=== PATIENT | female | born 1945 | race Caucasian/White ===

== ENCOUNTER 2018-11-08 13:08 | Inpatient (IN) | payer OTHER, MEDICARE, BC ==
[2018-11-08] MEDS ORDERED: Acetaminophen/HYDROcodone 325-10 MG Tab PO ONE (13:51)
[2018-11-08] MEDS ORDERED: [UNRECOGNIZED DRUG - REMARK] INH PRN (15:14)
[2018-11-08] MEDS: diphenhydrAMINE 25 MG Cap **OWN MED PO SCH (19:53)
[2018-11-08] MEDS: GLUCOSAMINE MSM PO SCH (19:53)
[2018-11-08] MEDS: CALCIUM CITRATE 1000 MG PO SCH (19:54)
[2018-11-08] MEDS: VITAMIN CODE PO SCH (19:54)
[2018-11-08] MEDS: ASCORBIC ACID 1000 MG PO SCH (19:54)
[2018-11-08] MEDS: Acetaminophen/HYDROcodone 325-10 MG Tab PO PRN (19:55)
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
[2018-11-09] MEDS: TIROSINT 75 MCG PO SCH (06:14)
[2018-11-09] MEDS: CRANBERRY 500 MG PO SCH (07:58)
[2018-11-09] MEDS: GLUCOSAMINE MSM PO SCH ×2 (07:58→19:59)
[2018-11-09] MEDS: OMEGA PO SCH (07:58)
[2018-11-09] MEDS: FATTY ACIDS PO SCH (07:58)
[2018-11-09] MEDS: FISH OIL PO SCH (07:58)
[2018-11-09] MEDS: MAGNESIUM OXIDE 200 MG PO SCH (07:59)
[2018-11-09] MEDS ORDERED: Lactobacillus Rhamnosus GG (Probiotic) Cap PO SCH (08:00)
[2018-11-09] MEDS: [UNRECOGNIZED DRUG - OTHER] PO SCH (08:00)
[2018-11-09] MEDS ORDERED: BIOFLAVONOID PO SCH (08:00)
[2018-11-09] MEDS: ASCORBIC ACID 1000 MG PO SCH ×4 (08:00→19:59)
[2018-11-09] MEDS ORDERED: CHOLECALCIFEROL PO SCH (08:00)
[2018-11-09] MEDS ORDERED: ASCORBATE CALCIUM PO SCH (08:00)
[2018-11-09] MEDS: CALCIUM CITRATE 1000 MG PO SCH ×2 (08:01→20:00)
[2018-11-09] MEDS: VITAMIN CODE PO SCH ×2 (08:02→20:01)
[2018-11-09] MEDS: Acetaminophen/HYDROcodone 325-10 MG Tab PO PRN ×4 (08:03→19:58)
[2018-11-09] MEDS: ZINC 50 MG PO SCH (08:03)
[2018-11-09] MEDS: [UNRECOGNIZED DRUG - OTHER] TOP SCH (08:05)
[2018-11-09] MEDS: DIFFERIN 0.1% TOP SCH (08:05)
[2018-11-09] MEDS: diphenhydrAMINE 25 MG Cap **OWN MED PO SCH (19:57)
[2018-11-10] MEDS: Acetaminophen/HYDROcodone 325-10 MG Tab PO PRN ×5 (03:23→23:20)
[2018-11-10] MEDS: TIROSINT 75 MCG PO SCH (06:10)
[2018-11-10] MEDS: [UNRECOGNIZED DRUG - OTHER] TOP SCH (08:38)
[2018-11-10] MEDS: DIFFERIN 0.1% TOP SCH (08:38)
[2018-11-10] MEDS: VITAMIN CODE PO SCH ×2 (08:39→19:33)
[2018-11-10] MEDS: MAGNESIUM OXIDE 200 MG PO SCH (08:40)
[2018-11-10] MEDS: ASCORBIC ACID 1000 MG PO SCH ×4 (08:44→19:32)
[2018-11-10] MEDS: CALCIUM CITRATE 1000 MG PO SCH ×2 (08:45→19:33)
[2018-11-10] MEDS: OMEGA PO SCH (08:46)
[2018-11-10] MEDS: FISH OIL PO SCH (08:46)
[2018-11-10] MEDS: FATTY ACIDS PO SCH (08:46)
[2018-11-10] MEDS: CRANBERRY 500 MG PO SCH (08:46)
[2018-11-10] MEDS: [UNRECOGNIZED DRUG - OTHER] PO SCH (08:48)
[2018-11-10] MEDS: GLUCOSAMINE MSM PO SCH ×2 (08:48→19:32)
[2018-11-10] MEDS: ZINC 50 MG PO SCH (08:49)
[2018-11-10] MEDS: diphenhydrAMINE 25 MG Cap **OWN MED PO SCH (19:31)
[2018-11-11] MEDS: TIROSINT 75 MCG PO SCH (06:15)
[2018-11-11 06:56] LABS: ANION GAP 8.8 mmol/L (10-20); CHLORIDE,CL 103 mmol/L (98-107); SODIUM,NA 141 mmol/L (136-145)
[2018-11-11] MEDS: CRANBERRY 500 MG PO SCH (08:25)
[2018-11-11] MEDS: Acetaminophen/HYDROcodone 325-10 MG Tab PO PRN ×4 (08:26→23:27)
[2018-11-11] MEDS: ASCORBIC ACID 1000 MG PO SCH ×4 (08:31→19:30)
[2018-11-11] MEDS: ZINC 50 MG PO SCH (08:32)
[2018-11-11] MEDS: [UNRECOGNIZED DRUG - OTHER] PO SCH (08:32)
[2018-11-11] MEDS: VITAMIN CODE PO SCH ×2 (08:33→19:31)
[2018-11-11] MEDS: CALCIUM CITRATE 1000 MG PO SCH ×2 (08:33→19:31)
[2018-11-11] MEDS: OMEGA PO SCH (08:35)
[2018-11-11] MEDS: MAGNESIUM OXIDE 200 MG PO SCH (08:35)
[2018-11-11] MEDS: FISH OIL PO SCH (08:35)
[2018-11-11] MEDS: GLUCOSAMINE MSM PO SCH ×2 (08:35→19:30)
[2018-11-11] MEDS: FATTY ACIDS PO SCH (08:35)
[2018-11-11] MEDS: [UNRECOGNIZED DRUG - OTHER] TOP SCH (08:38)
[2018-11-11] MEDS: DIFFERIN 0.1% TOP SCH (08:38)
[2018-11-11] MEDS: Dextran 70/Hypromellose/PF Ophth Soln 0.9 ML UD EYEBOTH SCH ×2 (11:21→19:32)
[2018-11-11] MEDS: diphenhydrAMINE 25 MG Cap **OWN MED PO SCH (19:29)
[2018-11-12] MEDS: Acetaminophen/HYDROcodone 325-10 MG Tab PO PRN ×3 (04:37→16:25)
[2018-11-12] MEDS: TIROSINT 75 MCG PO SCH (06:12)
[2018-11-12] MEDS: ASCORBIC ACID 1000 MG PO SCH ×4 (09:01→20:05)
[2018-11-12] MEDS: MAGNESIUM OXIDE 200 MG PO SCH (09:05)
[2018-11-12] MEDS: CALCIUM CITRATE 1000 MG PO SCH ×2 (09:08→20:07)
[2018-11-12] MEDS: CRANBERRY 500 MG PO SCH (09:08)
[2018-11-12] MEDS: GLUCOSAMINE MSM PO SCH ×2 (09:08→20:05)
[2018-11-12] MEDS: OMEGA PO SCH (09:09)
[2018-11-12] MEDS: ZINC 50 MG PO SCH (09:09)
[2018-11-12] MEDS: FISH OIL PO SCH (09:09)
[2018-11-12] MEDS: FATTY ACIDS PO SCH (09:09)
[2018-11-12] MEDS: VITAMIN CODE PO SCH ×2 (09:09→20:08)
[2018-11-12] MEDS: [UNRECOGNIZED DRUG - OTHER] PO SCH (09:09)
[2018-11-12] MEDS: Dextran 70/Hypromellose/PF Ophth Soln 0.9 ML UD EYEBOTH SCH ×2 (09:11→20:02)
[2018-11-12] MEDS: [UNRECOGNIZED DRUG - OTHER] TOP SCH (10:55)
[2018-11-12] MEDS: DIFFERIN 0.1% TOP SCH (10:56)
[2018-11-12] MEDS: diphenhydrAMINE 25 MG Cap **OWN MED PO SCH (20:06)
[2018-11-13] MEDS: Acetaminophen/HYDROcodone 325-10 MG Tab PO PRN ×5 (01:44→22:49)
[2018-11-13] MEDS: TIROSINT 75 MCG PO SCH (06:19)
[2018-11-13] MEDS: FISH OIL PO SCH (07:35)
[2018-11-13] MEDS: GLUCOSAMINE MSM PO SCH ×2 (07:35→19:53)
[2018-11-13] MEDS: FATTY ACIDS PO SCH (07:35)
[2018-11-13] MEDS: CRANBERRY 500 MG PO SCH (07:35)
[2018-11-13] MEDS: OMEGA PO SCH (07:35)
[2018-11-13] MEDS: VITAMIN CODE PO SCH ×2 (07:36→19:59)
[2018-11-13] MEDS: CALCIUM CITRATE 1000 MG PO SCH ×2 (07:36→19:59)
[2018-11-13] MEDS: MAGNESIUM OXIDE 200 MG PO SCH (07:36)
[2018-11-13] MEDS: [UNRECOGNIZED DRUG - OTHER] PO SCH (07:36)
[2018-11-13] MEDS: DIFFERIN 0.1% TOP SCH (07:36)
[2018-11-13] MEDS: [UNRECOGNIZED DRUG - OTHER] TOP SCH (07:36)
[2018-11-13] MEDS: ASCORBIC ACID 1000 MG PO SCH ×4 (07:36→19:51)
[2018-11-13] MEDS: Dextran 70/Hypromellose/PF Ophth Soln 0.9 ML UD EYEBOTH SCH ×2 (07:37→19:59)
[2018-11-13] MEDS: ZINC 50 MG PO SCH (07:37)
[2018-11-13] MEDS ORDERED: Bisacodyl 10 MG Supp RECTAL ONE (08:15)
[2018-11-13] MEDS: diphenhydrAMINE 25 MG Cap **OWN MED PO SCH (19:59)
[2018-11-14] MEDS: TIROSINT 75 MCG PO SCH (06:37)
[2018-11-14] MEDS: Acetaminophen/HYDROcodone 325-10 MG Tab PO PRN ×5 (06:51→21:13)
[2018-11-14] MEDS: CRANBERRY 500 MG PO SCH (08:17)
[2018-11-14] MEDS: GLUCOSAMINE MSM PO SCH ×2 (08:20→21:11)
[2018-11-14] MEDS: MAGNESIUM OXIDE 200 MG PO SCH (08:24)
[2018-11-14] MEDS: ZINC 50 MG PO SCH (08:24)
[2018-11-14] MEDS: ASCORBIC ACID 1000 MG PO SCH ×4 (08:27→20:55)
[2018-11-14] MEDS: [UNRECOGNIZED DRUG - OTHER] PO SCH (08:31)
[2018-11-14] MEDS: CALCIUM CITRATE 1000 MG PO SCH ×2 (08:32→21:11)
[2018-11-14] MEDS: VITAMIN CODE PO SCH ×2 (08:40→21:11)
[2018-11-14] MEDS: FISH OIL PO SCH (08:43)
[2018-11-14] MEDS: OMEGA PO SCH (08:43)
[2018-11-14] MEDS: FATTY ACIDS PO SCH (08:43)
[2018-11-14] MEDS: Dextran 70/Hypromellose/PF Ophth Soln 0.9 ML UD EYEBOTH SCH ×2 (08:49→21:12)
[2018-11-14] MEDS: [UNRECOGNIZED DRUG - OTHER] TOP SCH (09:03)
[2018-11-14] MEDS: DIFFERIN 0.1% TOP SCH (09:07)
[2018-11-14] MEDS ORDERED: Polyethylene Glycol 3350 Powder 17 GM Packet PO ONE ×2 (13:02→20:00)
[2018-11-14] MEDS: diphenhydrAMINE 25 MG Cap **OWN MED PO SCH (20:45)
[2018-11-15] MEDS: Acetaminophen/HYDROcodone 325-10 MG Tab PO PRN ×5 (01:18→20:31)
[2018-11-15] MEDS: TIROSINT 75 MCG PO SCH (06:01)
[2018-11-15] MEDS: CRANBERRY 500 MG PO SCH (07:43)
[2018-11-15] MEDS: GLUCOSAMINE MSM PO SCH ×2 (07:45→20:37)
[2018-11-15] MEDS: FATTY ACIDS PO SCH (07:46)
[2018-11-15] MEDS: OMEGA PO SCH (07:46)
[2018-11-15] MEDS: FISH OIL PO SCH (07:46)
[2018-11-15] MEDS: VITAMIN CODE PO SCH ×2 (07:46→20:42)
[2018-11-15] MEDS: CALCIUM CITRATE 1000 MG PO SCH ×2 (07:46→20:39)
[2018-11-15] MEDS: ZINC 50 MG PO SCH (07:47)
[2018-11-15] MEDS: MAGNESIUM OXIDE 200 MG PO SCH ×2 (07:48→20:41)
[2018-11-15] MEDS: [UNRECOGNIZED DRUG - OTHER] PO SCH (07:49)
[2018-11-15] MEDS: ASCORBIC ACID 1000 MG PO SCH ×4 (07:50→20:36)
[2018-11-15] MEDS: Dextran 70/Hypromellose/PF Ophth Soln 0.9 ML UD EYEBOTH SCH ×2 (07:51→20:43)
[2018-11-15] MEDS: [UNRECOGNIZED DRUG - OTHER] TOP SCH (07:52)
[2018-11-15] MEDS: DIFFERIN 0.1% TOP SCH (07:52)
[2018-11-15] MEDS ORDERED: Magnesium Hydroxide 400 MG/5 ML Susp 30 ML Cup PO ONE (08:40)
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
[2018-11-15] MEDS: diphenhydrAMINE 25 MG Cap **OWN MED PO SCH (20:36)
[2018-11-16] MEDS: Acetaminophen/HYDROcodone 325-10 MG Tab PO PRN ×4 (02:30→18:39)
[2018-11-16 03:25] LABS: CHLORIDE,CL 98 mmol/L (98-107); SODIUM,NA 140 mmol/L (136-145)
[2018-11-16 03:28] LABS: ANION GAP 18.3 mmol/L (10-20)
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
[2018-11-16] MEDS: Dextran 70/Hypromellose/PF Ophth Soln 0.9 ML UD EYEBOTH SCH ×2 (07:55→19:47)
[2018-11-16] MEDS: FISH OIL PO SCH (07:56)
[2018-11-16] MEDS: VITAMIN CODE PO SCH ×2 (07:56→19:44)
[2018-11-16] MEDS: OMEGA PO SCH (07:56)
[2018-11-16] MEDS: FATTY ACIDS PO SCH (07:56)
[2018-11-16] MEDS: CALCIUM CITRATE 1000 MG PO SCH ×2 (07:56→19:40)
[2018-11-16] MEDS: GLUCOSAMINE MSM PO SCH ×2 (07:57→19:43)
[2018-11-16] MEDS: [UNRECOGNIZED DRUG - OTHER] PO SCH (07:57)
[2018-11-16] MEDS: CRANBERRY 500 MG PO SCH (07:58)
[2018-11-16] MEDS: [UNRECOGNIZED DRUG - OTHER] TOP SCH (07:58)
[2018-11-16] MEDS: ZINC 50 MG PO SCH (07:58)
[2018-11-16] MEDS: MAGNESIUM OXIDE 200 MG PO SCH ×3 (07:59→19:42)
[2018-11-16] MEDS: ASCORBIC ACID 1000 MG PO SCH ×4 (07:59→19:43)
[2018-11-16] MEDS: DIFFERIN 0.1% TOP SCH (07:59)
[2018-11-16] MEDS: TIROSINT 75 MCG PO SCH (09:14)
[2018-11-16] MEDS: diphenhydrAMINE 25 MG Cap **OWN MED PO SCH (19:40)
[2018-11-16] MEDS: Acetaminophen/HYDROcodone 325-5 MG Tab PO PRN (23:00)
[2018-11-17] MEDS: Acetaminophen/HYDROcodone 325-5 MG Tab PO PRN ×2 (06:39→07:22)
[2018-11-17] MEDS: Levothyroxine 100 MCG Tab PO SCH (06:40)
[2018-11-17] MEDS: MAGNESIUM OXIDE 200 MG PO SCH ×2 (08:37→19:54)
[2018-11-17] MEDS: ASCORBIC ACID 1000 MG PO SCH ×4 (08:38→19:53)
[2018-11-17] MEDS: VITAMIN CODE PO SCH ×2 (08:38→19:53)
[2018-11-17] MEDS: ZINC 50 MG PO SCH (08:38)
[2018-11-17] MEDS: FISH OIL PO SCH (08:39)
[2018-11-17] MEDS: OMEGA PO SCH (08:39)
[2018-11-17] MEDS: [UNRECOGNIZED DRUG - OTHER] PO SCH (08:39)
[2018-11-17] MEDS: FATTY ACIDS PO SCH (08:39)
[2018-11-17] MEDS: GLUCOSAMINE MSM PO SCH ×2 (08:39→19:52)
[2018-11-17] MEDS: CRANBERRY 500 MG PO SCH (08:39)
[2018-11-17] MEDS: CALCIUM CITRATE 1000 MG PO SCH ×2 (08:40→19:56)
[2018-11-17] MEDS: DIFFERIN 0.1% TOP SCH (08:42)
[2018-11-17] MEDS: Dextran 70/Hypromellose/PF Ophth Soln 0.9 ML UD EYEBOTH SCH ×2 (08:42→19:55)
[2018-11-17] MEDS: [UNRECOGNIZED DRUG - OTHER] TOP SCH (08:42)
[2018-11-17] MEDS: Polyethylene Glycol 3350 Powder 17 GM Packet PO SCH (08:55)
[2018-11-17] MEDS: Acetaminophen/HYDROcodone 325-10 MG Tab PO PRN ×3 (11:43→20:41)
--- NOTE | 2018-11-17 13:51 | CT ---
[id number] CT/CT Head WO IV EXAM: CT Head WO IV CLINICAL DATA: CHANGE IN MENTAL STATUS COMPARISON: NO PREVIOUS SIMILAR EXAM IS AVAILABLE FOR COMPARISON. FINDINGS: There is no mass or mass effect. There is no hemorrhage or hydrocephalus. There are no extra-axial fluid collections. There are no sites of abnormal attenuation. IMPRESSION: NO PLAIN CT EVIDENCE OF ACUTE INTRACRANIAL PROCESS. Bernardo Garcia MD 11/17/18 [id number] Thank you for allowing us to participate in the care of your patient.
[2018-11-17] MEDS: diphenhydrAMINE 25 MG Cap **OWN MED PO SCH (19:51)
[2018-11-18] MEDS: Acetaminophen/HYDROcodone 325-10 MG Tab PO PRN ×4 (00:46→20:45)
[2018-11-18] MEDS: Levothyroxine 100 MCG Tab PO SCH (06:31)
[2018-11-18] MEDS: Polyethylene Glycol 3350 Powder 17 GM Packet PO SCH (07:48)
[2018-11-18] MEDS: ZINC 50 MG PO SCH (07:49)
[2018-11-18] MEDS: VITAMIN CODE PO SCH ×2 (07:49→19:47)
[2018-11-18] MEDS: FATTY ACIDS PO SCH (07:50)
[2018-11-18] MEDS: CRANBERRY 500 MG PO SCH (07:50)
[2018-11-18] MEDS: OMEGA PO SCH (07:50)
[2018-11-18] MEDS: FISH OIL PO SCH (07:50)
[2018-11-18] MEDS: [UNRECOGNIZED DRUG - OTHER] PO SCH (07:50)
[2018-11-18] MEDS: CALCIUM CITRATE 1000 MG PO SCH ×2 (07:51→19:47)
[2018-11-18] MEDS: GLUCOSAMINE MSM PO SCH ×2 (07:51→19:42)
[2018-11-18] MEDS: ASCORBIC ACID 1000 MG PO SCH ×4 (07:52→19:49)
[2018-11-18] MEDS: DIFFERIN 0.1% TOP SCH (07:53)
[2018-11-18] MEDS: [UNRECOGNIZED DRUG - OTHER] TOP SCH (07:53)
[2018-11-18] MEDS: Dextran 70/Hypromellose/PF Ophth Soln 0.9 ML UD EYEBOTH SCH ×2 (07:54→19:48)
[2018-11-18] MEDS: MAGNESIUM OXIDE 200 MG PO SCH ×2 (07:56→19:43)
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
[2018-11-18] MEDS: diphenhydrAMINE 25 MG Cap **OWN MED PO SCH (19:42)
[2018-11-19] MEDS: Levothyroxine 100 MCG Tab PO SCH (06:10)
[2018-11-19] MEDS: Dextran 70/Hypromellose/PF Ophth Soln 0.9 ML UD EYEBOTH SCH ×2 (08:11→20:29)
[2018-11-19] MEDS: Potassium Chloride 10 MEQ Tab.ER PO SCH (08:11)
[2018-11-19] MEDS: Polyethylene Glycol 3350 Powder 17 GM Packet PO SCH (08:11)
[2018-11-19] MEDS: Acetaminophen/HYDROcodone 325-10 MG Tab PO PRN ×3 (08:12→19:03)
[2018-11-19] MEDS: VITAMIN CODE PO SCH ×2 (08:13→20:28)
[2018-11-19] MEDS: ASCORBIC ACID 1000 MG PO SCH ×4 (08:13→20:32)
[2018-11-19] MEDS: OMEGA PO SCH (08:14)
[2018-11-19] MEDS: CRANBERRY 500 MG PO SCH (08:14)
[2018-11-19] MEDS: FATTY ACIDS PO SCH (08:14)
[2018-11-19] MEDS: CALCIUM CITRATE 1000 MG PO SCH ×2 (08:14→20:29)
[2018-11-19] MEDS: FISH OIL PO SCH (08:14)
[2018-11-19] MEDS: ZINC 50 MG PO SCH (08:14)
[2018-11-19] MEDS: MAGNESIUM OXIDE 200 MG PO SCH ×2 (08:15→20:32)
[2018-11-19] MEDS: GLUCOSAMINE MSM PO SCH ×2 (08:15→20:28)
[2018-11-19] MEDS: [UNRECOGNIZED DRUG - OTHER] PO SCH (08:16)
[2018-11-19] MEDS: DIFFERIN 0.1% TOP SCH (08:17)
[2018-11-19] MEDS: [UNRECOGNIZED DRUG - OTHER] TOP SCH (08:17)
[2018-11-19] MEDS: diphenhydrAMINE 25 MG Cap **OWN MED PO SCH (20:28)
[2018-11-20] MEDS: Levothyroxine 100 MCG Tab PO SCH (06:55)
[2018-11-20] MEDS: Polyethylene Glycol 3350 Powder 17 GM Packet PO SCH (07:48)
[2018-11-20] MEDS: CRANBERRY 500 MG PO SCH (07:48)
[2018-11-20] MEDS: Potassium Chloride 10 MEQ Tab.ER PO SCH (07:48)
[2018-11-20] MEDS: Dextran 70/Hypromellose/PF Ophth Soln 0.9 ML UD EYEBOTH SCH ×2 (07:48→19:28)
[2018-11-20] MEDS: ZINC 50 MG PO SCH (07:48)
[2018-11-20] MEDS: CALCIUM CITRATE 1000 MG PO SCH ×2 (07:49→19:30)
[2018-11-20] MEDS: ASCORBIC ACID 1000 MG PO SCH ×4 (07:49→19:32)
[2018-11-20] MEDS: FATTY ACIDS PO SCH (07:50)
[2018-11-20] MEDS: GLUCOSAMINE MSM PO SCH ×2 (07:50→19:31)
[2018-11-20] MEDS: VITAMIN CODE PO SCH ×2 (07:50→19:29)
[2018-11-20] MEDS: OMEGA PO SCH (07:50)
[2018-11-20] MEDS: FISH OIL PO SCH (07:50)
[2018-11-20] MEDS: [UNRECOGNIZED DRUG - OTHER] PO SCH (07:51)
[2018-11-20] MEDS: MAGNESIUM OXIDE 200 MG PO SCH ×2 (07:51→19:31)
[2018-11-20] MEDS: DIFFERIN 0.1% TOP SCH (07:52)
[2018-11-20] MEDS: [UNRECOGNIZED DRUG - OTHER] TOP SCH (07:53)
[2018-11-20] MEDS: Acetaminophen/HYDROcodone 325-10 MG Tab PO PRN ×4 (08:00→23:02)
[2018-11-20] MEDS: diphenhydrAMINE 25 MG Cap **OWN MED PO SCH (19:29)
[2018-11-21] MEDS: Acetaminophen/HYDROcodone 325-10 MG Tab PO PRN ×4 (03:17→17:10)
[2018-11-21] MEDS: Levothyroxine 100 MCG Tab PO SCH (06:05)
[2018-11-21] MEDS: ASCORBIC ACID 1000 MG PO SCH ×4 (07:59→19:15)
[2018-11-21] MEDS: VITAMIN CODE PO SCH ×2 (08:00→19:16)
[2018-11-21] MEDS: GLUCOSAMINE MSM PO SCH ×2 (08:01→19:17)
[2018-11-21] MEDS: CALCIUM CITRATE 1000 MG PO SCH ×2 (08:02→19:16)
[2018-11-21] MEDS: ZINC 50 MG PO SCH (08:02)
[2018-11-21] MEDS: CRANBERRY 500 MG PO SCH (08:02)
[2018-11-21] MEDS: Potassium Chloride 10 MEQ Tab.ER PO SCH (08:03)
[2018-11-21] MEDS: Dextran 70/Hypromellose/PF Ophth Soln 0.9 ML UD EYEBOTH SCH ×2 (08:10→19:17)
[2018-11-21] MEDS: [UNRECOGNIZED DRUG - OTHER] TOP SCH (08:11)
[2018-11-21] MEDS: DIFFERIN 0.1% TOP SCH (08:11)
[2018-11-21] MEDS: MAGNESIUM OXIDE 200 MG PO SCH ×2 (08:14→19:16)
[2018-11-21] MEDS: FATTY ACIDS PO SCH (08:14)
[2018-11-21] MEDS: FISH OIL PO SCH (08:14)
[2018-11-21] MEDS: OMEGA PO SCH (08:14)
[2018-11-21] MEDS: [UNRECOGNIZED DRUG - OTHER] PO SCH (08:14)
[2018-11-21] MEDS: Polyethylene Glycol 3350 Powder 17 GM Packet PO SCH (08:34)
[2018-11-21] MEDS: [UNRECOGNIZED DRUG - REMARK] PO SCH ×3 (08:37→19:55)
[2018-11-21] MEDS: diphenhydrAMINE 25 MG Cap **OWN MED PO SCH (19:15)
[2018-11-21] MEDS: Acetaminophen/HYDROcodone 325-5 MG Tab PO PRN (20:30)
[2018-11-22] MEDS: Acetaminophen/HYDROcodone 325-10 MG Tab PO PRN ×4 (00:57→20:56)
[2018-11-22] MEDS: Levothyroxine 100 MCG Tab PO SCH (06:24)
[2018-11-22] MEDS: MAGNESIUM OXIDE 200 MG PO SCH ×2 (08:34→20:41)
[2018-11-22] MEDS: ASCORBIC ACID 1000 MG PO SCH ×4 (08:34→20:45)
[2018-11-22] MEDS: Potassium Chloride 10 MEQ Tab.ER PO SCH (08:36)
[2018-11-22] MEDS: CALCIUM CITRATE 1000 MG PO SCH ×2 (08:36→20:43)
[2018-11-22] MEDS: ZINC 50 MG PO SCH (08:37)
[2018-11-22] MEDS: [UNRECOGNIZED DRUG - OTHER] PO SCH (08:37)
[2018-11-22] MEDS: VITAMIN CODE PO SCH ×2 (08:37→20:47)
[2018-11-22] MEDS: FATTY ACIDS PO SCH (08:38)
[2018-11-22] MEDS: FISH OIL PO SCH (08:38)
[2018-11-22] MEDS: CRANBERRY 500 MG PO SCH (08:38)
[2018-11-22] MEDS: OMEGA PO SCH (08:38)
[2018-11-22] MEDS: GLUCOSAMINE MSM PO SCH ×2 (08:38→20:42)
[2018-11-22] MEDS: Dextran 70/Hypromellose/PF Ophth Soln 0.9 ML UD EYEBOTH SCH ×2 (08:42→20:48)
[2018-11-22] MEDS: [UNRECOGNIZED DRUG - REMARK] PO SCH ×2 (08:45→20:39)
[2018-11-22] MEDS: Polyethylene Glycol 3350 Powder 17 GM Packet PO SCH (08:51)
[2018-11-22] MEDS: Acetaminophen/HYDROcodone 325-5 MG Tab PO PRN (15:59)
[2018-11-22] MEDS: diphenhydrAMINE 25 MG Cap **OWN MED PO SCH (20:44)
[2018-11-23] MEDS: Acetaminophen/HYDROcodone 325-10 MG Tab PO PRN ×3 (05:03→22:05)
[2018-11-23] MEDS: Levothyroxine 100 MCG Tab PO SCH (10:53)
[2018-11-23] MEDS: Acetaminophen/HYDROcodone 325-5 MG Tab PO PRN (10:54)
[2018-11-23] MEDS: VITAMIN CODE PO SCH ×2 (10:56→19:44)
[2018-11-23] MEDS: ZINC 50 MG PO SCH (11:30)
[2018-11-23] MEDS: MAGNESIUM OXIDE 200 MG PO SCH ×2 (11:30→19:42)
[2018-11-23] MEDS: CRANBERRY 500 MG PO SCH (11:30)
[2018-11-23] MEDS: [UNRECOGNIZED DRUG - OTHER] PO SCH (11:30)
[2018-11-23] MEDS: CALCIUM CITRATE 1000 MG PO SCH ×2 (11:31→19:44)
[2018-11-23] MEDS: ASCORBIC ACID 1000 MG PO SCH ×4 (11:32→19:43)
[2018-11-23] MEDS: GLUCOSAMINE MSM PO SCH ×2 (11:34→19:41)
[2018-11-23] MEDS: FATTY ACIDS PO SCH (11:35)
[2018-11-23] MEDS: OMEGA PO SCH (11:35)
[2018-11-23] MEDS: FISH OIL PO SCH (11:35)
[2018-11-23] MEDS: Polyethylene Glycol 3350 Powder 17 GM Packet PO SCH (11:36)
[2018-11-23] MEDS: Dextran 70/Hypromellose/PF Ophth Soln 0.9 ML UD EYEBOTH SCH ×2 (11:38→19:45)
[2018-11-23] MEDS: Potassium Chloride 10 MEQ Tab.ER PO SCH (11:50)
[2018-11-23] MEDS: [UNRECOGNIZED DRUG - REMARK] PO SCH ×2 (11:50→19:40)
[2018-11-23] MEDS: diphenhydrAMINE 25 MG Cap **OWN MED PO SCH (19:36)
[2018-11-24] MEDS: Levothyroxine 100 MCG Tab PO SCH (06:13)
[2018-11-24] MEDS: Acetaminophen/HYDROcodone 325-10 MG Tab PO PRN ×4 (08:47→21:32)
[2018-11-24] MEDS: Potassium Chloride 10 MEQ Tab.ER PO SCH (08:57)
[2018-11-24] MEDS: FATTY ACIDS PO SCH (08:58)
[2018-11-24] MEDS: VITAMIN CODE PO SCH ×2 (08:58→19:27)
[2018-11-24] MEDS: [UNRECOGNIZED DRUG - REMARK] PO SCH ×2 (08:58→19:24)
[2018-11-24] MEDS: FISH OIL PO SCH (08:58)
[2018-11-24] MEDS: ASCORBIC ACID 1000 MG PO SCH ×4 (08:58→19:26)
[2018-11-24] MEDS: OMEGA PO SCH (08:58)
[2018-11-24] MEDS: CALCIUM CITRATE 1000 MG PO SCH ×2 (08:59→19:27)
[2018-11-24] MEDS: CRANBERRY 500 MG PO SCH (08:59)
[2018-11-24] MEDS: MAGNESIUM OXIDE 200 MG PO SCH ×2 (09:00→19:25)
[2018-11-24] MEDS: GLUCOSAMINE MSM PO SCH ×2 (09:00→19:25)
[2018-11-24] MEDS: [UNRECOGNIZED DRUG - OTHER] PO SCH (09:01)
[2018-11-24] MEDS: Polyethylene Glycol 3350 Powder 17 GM Packet PO SCH (09:04)
[2018-11-24] MEDS: Dextran 70/Hypromellose/PF Ophth Soln 0.9 ML UD EYEBOTH SCH ×2 (09:06→19:28)
[2018-11-24] MEDS: ZINC 50 MG PO SCH (09:14)
[2018-11-24] MEDS: diphenhydrAMINE 25 MG Cap **OWN MED PO SCH (19:24)
[2018-11-25] MEDS: Acetaminophen/HYDROcodone 325-10 MG Tab PO PRN ×5 (03:44→20:31)
[2018-11-25] MEDS: Levothyroxine 100 MCG Tab PO SCH (06:22)
[2018-11-25] MEDS: CRANBERRY 500 MG PO SCH (07:55)
[2018-11-25] MEDS: ZINC 50 MG PO SCH (07:56)
[2018-11-25] MEDS: CALCIUM CITRATE 1000 MG PO SCH ×2 (07:56→19:25)
[2018-11-25] MEDS: ASCORBIC ACID 1000 MG PO SCH ×4 (07:57→19:24)
[2018-11-25] MEDS: GLUCOSAMINE MSM PO SCH ×2 (07:57→19:21)
[2018-11-25] MEDS: VITAMIN CODE PO SCH ×2 (07:58→19:25)
[2018-11-25] MEDS: OMEGA PO SCH (07:59)
[2018-11-25] MEDS: FISH OIL PO SCH (07:59)
[2018-11-25] MEDS: MAGNESIUM OXIDE 200 MG PO SCH (07:59)
[2018-11-25] MEDS: FATTY ACIDS PO SCH (07:59)
[2018-11-25] MEDS: [UNRECOGNIZED DRUG - OTHER] PO SCH (08:01)
[2018-11-25] MEDS: Potassium Chloride 10 MEQ Tab.ER PO SCH (08:03)
[2018-11-25] MEDS: Polyethylene Glycol 3350 Powder 17 GM Packet PO SCH (08:03)
[2018-11-25] MEDS: Dextran 70/Hypromellose/PF Ophth Soln 0.9 ML UD EYEBOTH SCH ×2 (08:09→19:26)
[2018-11-25] MEDS: [UNRECOGNIZED DRUG - REMARK] PO SCH ×2 (08:10→19:21)
[2018-11-25] MEDS: diphenhydrAMINE 25 MG Cap **OWN MED PO SCH (19:18)
[2018-11-25] MEDS: MAGNESIUM OXIDE PO SCH (19:27)
[2018-11-26] MEDS: Acetaminophen/HYDROcodone 325-10 MG Tab PO PRN ×6 (00:32→20:51)
[2018-11-26] MEDS: Levothyroxine 100 MCG Tab PO SCH (06:14)
[2018-11-26] MEDS: Potassium Chloride 10 MEQ Tab.ER PO SCH (08:43)
[2018-11-26] MEDS: GLUCOSAMINE MSM PO SCH ×2 (08:47→19:44)
[2018-11-26] MEDS: [UNRECOGNIZED DRUG - OTHER] PO SCH (08:47)
[2018-11-26] MEDS: CRANBERRY 500 MG PO SCH (08:48)
[2018-11-26] MEDS: CALCIUM CITRATE 1000 MG PO SCH ×2 (08:49→19:43)
[2018-11-26] MEDS: ZINC 50 MG PO SCH (08:49)
[2018-11-26] MEDS: VITAMIN CODE PO SCH ×2 (08:50→19:46)
[2018-11-26] MEDS: FISH OIL PO SCH (08:50)
[2018-11-26] MEDS: OMEGA PO SCH (08:50)
[2018-11-26] MEDS: FATTY ACIDS PO SCH (08:50)
[2018-11-26] MEDS: ASCORBIC ACID 1000 MG PO SCH ×4 (08:52→19:42)
[2018-11-26] MEDS: MAGNESIUM OXIDE PO SCH ×2 (08:53→19:45)
[2018-11-26] MEDS: [UNRECOGNIZED DRUG - REMARK] PO SCH ×2 (08:59→19:44)
[2018-11-26] MEDS: Polyethylene Glycol 3350 Powder 17 GM Packet PO SCH (08:59)
[2018-11-26] MEDS: Dextran 70/Hypromellose/PF Ophth Soln 0.9 ML UD EYEBOTH SCH ×2 (09:02→19:46)
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
[2018-11-26] MEDS: diphenhydrAMINE 25 MG Cap **OWN MED PO SCH (19:42)
[2018-11-27] MEDS: Acetaminophen/HYDROcodone 325-10 MG Tab PO PRN ×5 (00:47→19:49)
[2018-11-27] MEDS: Levothyroxine 100 MCG Tab PO SCH (06:20)
[2018-11-27 07:02] LABS: CHLORIDE,CL 105 mmol/L (98-107); SODIUM,NA 144 mmol/L (136-145)
[2018-11-27 07:03] LABS: ANION GAP 14.8 mmol/L (10-20)
[2018-11-27] MEDS: ZINC 50 MG PO SCH (07:56)
[2018-11-27] MEDS: CRANBERRY 500 MG PO SCH (07:57)
[2018-11-27] MEDS: ASCORBIC ACID 1000 MG PO SCH ×4 (07:57→19:39)
[2018-11-27] MEDS: CALCIUM CITRATE 1000 MG PO SCH ×2 (07:58→19:40)
[2018-11-27] MEDS: FATTY ACIDS PO SCH (07:59)
[2018-11-27] MEDS: OMEGA PO SCH (07:59)
[2018-11-27] MEDS: FISH OIL PO SCH (07:59)
[2018-11-27] MEDS: GLUCOSAMINE MSM PO SCH ×2 (08:00→19:42)
[2018-11-27] MEDS ORDERED: DIFFERIN 0.1% TOP SCH (08:00)
[2018-11-27] MEDS ORDERED: IMIQUIMOD 5% TOP SCH (08:00)
[2018-11-27] MEDS: MAGNESIUM OXIDE PO SCH ×2 (08:01→19:43)
[2018-11-27] MEDS: VITAMIN CODE PO SCH ×2 (08:02→19:45)
[2018-11-27] MEDS: [UNRECOGNIZED DRUG - REMARK] PO SCH ×2 (08:05→19:38)
[2018-11-27] MEDS: [UNRECOGNIZED DRUG - OTHER] PO SCH (08:06)
[2018-11-27] MEDS: Dextran 70/Hypromellose/PF Ophth Soln 0.9 ML UD EYEBOTH SCH ×2 (08:07→19:44)
[2018-11-27] MEDS: Polyethylene Glycol 3350 Powder 17 GM Packet PO SCH (08:18)
[2018-11-27] MEDS: Potassium Chloride 10 MEQ Tab.ER PO SCH (08:18)
[2018-11-27] MEDS: CETIRIZINE 10 MG PO SCH (09:11)
[2018-11-27] MEDS: diphenhydrAMINE 25 MG Cap **OWN MED PO SCH (19:41)
[2018-11-28] MEDS: Acetaminophen/HYDROcodone 325-5 MG Tab PO PRN ×3 (02:06→11:49)
[2018-11-28] MEDS: Levothyroxine 100 MCG Tab PO SCH (06:43)
[2018-11-28] MEDS: OMEGA PO SCH (08:04)
[2018-11-28] MEDS: FATTY ACIDS PO SCH (08:04)
[2018-11-28] MEDS: FISH OIL PO SCH (08:04)
[2018-11-28] MEDS: CRANBERRY 500 MG PO SCH (08:07)
[2018-11-28] MEDS: [UNRECOGNIZED DRUG - REMARK] PO SCH (08:07)
[2018-11-28] MEDS: GLUCOSAMINE MSM PO SCH (08:07)
[2018-11-28] MEDS: ZINC 50 MG PO SCH (08:08)
[2018-11-28] MEDS: ASCORBIC ACID 1000 MG PO SCH ×2 (08:09→12:41)
[2018-11-28] MEDS: VITAMIN CODE PO SCH (08:09)
[2018-11-28] MEDS: CALCIUM CITRATE 1000 MG PO SCH (08:09)
[2018-11-28] MEDS: MAGNESIUM OXIDE PO SCH (08:10)
[2018-11-28] MEDS: Polyethylene Glycol 3350 Powder 17 GM Packet PO SCH (08:10)
[2018-11-28] MEDS: Potassium Chloride 10 MEQ Tab.ER PO SCH (08:10)
[2018-11-28] MEDS: Dextran 70/Hypromellose/PF Ophth Soln 0.9 ML UD EYEBOTH SCH (08:12)
[2018-11-28] MEDS: [UNRECOGNIZED DRUG - OTHER] PO SCH (08:15)
[2018-11-28] MEDS: CETIRIZINE 10 MG PO SCH (08:15)
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
== END 2018-11-28 13:20 | disposition home health service (06) | DRG 560 ==
LOC: VM.MS 13:28
PROVIDERS: ADMIT Internal Medicine; ATTEND Internal Medicine
DX: S22.081D Stable burst fracture of T11-T12 vertebra, subsequent encounter for fracture with routine healing (principal); G40.89 Other seizures; S22.079D Unspecified fracture of T9-T10 vertebra, subsequent encounter for fracture with routine healing; S13.4XXD Sprain of ligaments of cervical spine, subsequent encounter; S01.01XD Laceration without foreign body of scalp, subsequent encounter; V49.9XXD Car occupant (driver) (passenger) injured in unspecified traffic accident, subsequent encounter; J45.909 Unspecified asthma, uncomplicated; M79.7 Fibromyalgia; E89.0 Postprocedural hypothyroidism; G47.33 Obstructive sleep apnea (adult) (pediatric); M81.0 Age-related osteoporosis without current pathological fracture; K59.00 Constipation, unspecified; K58.1 Irritable bowel syndrome with constipation; Z88.5 Allergy status to narcotic agent; Z88.0 Allergy status to penicillin; Z88.8 Allergy status to other drugs, medicaments and biological substances; Z85.850 Personal history of malignant neoplasm of thyroid; Z85.828 Personal history of other malignant neoplasm of skin; Z79.890 Hormone replacement therapy; Z79.899 Other long term (current) drug therapy
CPT/HCPCS: 36415; 70450; 80048; 80053; 81001; 82962; 83605; 83735; 84100; 84443; 84484; 85025; 85610; 86140; 93005; 97110-GP; 97116-GP; 97163-GP; 97165-GO; 97530-GP; 97535-GO; A9270-GY